=== PATIENT | male | born 1940 | race Caucasian/White ===

== ENCOUNTER 2016-09-19 08:49 | Emergency (ER) | payer OTHER ==
[2016-09-19 09:04] VITALS: BP 129/76; PULSE 64; TEMP 98.1; BMI 23.6
[2016-09-19] MEDS ORDERED: TETRACAINE 0.5% HCL 0.6ML DROPPER.BOTTLE OS ONE (09:10)
[2016-09-19] MEDS ORDERED: FLUORESCEIN NA 1 EA STRIP ONE (09:11)
[2016-09-19] MEDS ORDERED: FLUORESCEIN NA 1 EA STRIP OD ONE (09:11)
[2016-09-19] MEDS ORDERED: TETRACAINE 0.5% OPHTH SOLN 2 ML BOTTLE ONE (09:11)
[2016-09-19] MEDS ORDERED: ERYTHROMYCIN 0.5% OPHTHALMIC OINTMENT 3.5 GM TUBE OD ONE (09:20)
--- NOTE | 2016-09-19 09:21 | PDOC ---
History of Present Illness - General Chief Complaint: Eye Problem Stated Complaint: RT EYE PAIN Time Seen by Provider: 09/19/16 08:54 - History of Present Illness Initial Comments: 09/19/16 09:54 Chief complaint: Irritation and redness right eye History of present illness: As above for 2 days. No blurred or decreased vision. No known foreign body, although this is the sensation. Review of systems: No recent URI symptoms, sore throat, cough, chest pain, shortness of breath, abdominal pain, nausea, vomiting, diarrhea, visual or focal neurologic symptoms, unsteadiness of gait. Past medical history: Patient is a healthy male with no active medical problems , on no medications, no known high disease, wears glasses for correction. Social/family history reviewed and noncontributory Physical exam: Alert and oriented 3, well-developed well-nourished, no acute distress, cooperative Afebrile, vital signs normal Right eye: Conjunctiva is mildly injected without limbal flush. Anterior chambers clear. EOMs are full without diplopia. Visual acuity is intact as noted in nursing notes. Visual venegas are intact to confrontation. PERRLA 3 mm, fundi benign. Staining of the cornea with fluorescein reveals a corneal abrasion at approximately 6:00, at the inferior edge of the cornea, confined to the peripheral area. There is no foreign body visualized. There is no ulceration visualized. Left eye is normal. ENT clear Neck supple without nodes Chest clear CV regular without murmur rub or gallop Abdomen benign Skin clear, no rash Impression: Corneal abrasion Plan: Erythromycin ointment was applied and the eye was comfortably patched. The patient felt much better and was completely ambulatory and in no significant pain or other distress upon discharge. He was instructed to maintain the patch overnight, remove in the morning, and see his eye doctor Dr. Rodas to ensure that the abrasion has healed. Past History - Past Medical History Allergies/Adverse Reactions: Allergies Allergy/AdvReac Type Severity Reaction Status Date / Time No Known Allergies Allergy Verified 09/19/16 08:50 Home Medications: Ambulatory Orders NK [No Known Home Medication] 09/19/16 Other medical history: DENIES - Psycho/Social/Smoking Cessation Hx Anxiety: No Suicidal Ideation: No Smoking History: Never smoked Have you smoked in the past 12 months: No Information on smoking cessation initiated: No Hx Alcohol Use: No Drug/Substance Use Hx: No Substance Use Type: None *Physical Exam - Vital Signs Last Vital Signs Temp Pulse Resp BP Pulse Ox 98.1 F 64 20 129/76 98 09/19/16 08:50 09/19/16 08:50 09/19/16 08:50 09/19/16 08:50 09/19/16 08:50 *DC/Admit/Observation/Transfer Diagnosis at time of Disposition: Corneal abrasion Qualifiers: Encounter type: initial encounter Laterality: right Qualified Code(s): S05.01XA - Injury of conjunctiva and corneal abrasion without foreign body, right eye, initial encounter - Discharge Dispostion Disposition: HOME Condition at time of disposition: Improved Admit: No - Patient Instructions Printed Discharge Instructions: DI for Corneal Abrasion Additional Instructions: Keep eye patched until tomorrow morning. Remove patch at that time. If there is any residual irritation or discomfort of any kind, or any residual redness or blurred vision, see your eye doctor, Dr. Rodas, for further evaluation and treatment.
[2016-09-19] MEDS ORDERED: ERYTHROMYCIN 0.5% OPHTHALMIC OINTMENT 3.5 GM TUBE ONE (09:24)
== END 2016-09-19 09:36 | disposition home or self-care (01) ==
LOC: FER 08:49
DX: S05.01XA Injury of conjunctiva and corneal abrasion without foreign body, right eye, initial encounter (principal); X58.XXXA Exposure to other specified factors, initial encounter; Y93.89 Activity, other specified; Y92.9 Unspecified place or not applicable
CPT/HCPCS: 99281-25

== ENCOUNTER 2017-05-01 09:16 | Emergency (ER) | payer OTHER ==
[2017-05-01 09:23] VITALS: BP 148/83; PULSE 67; TEMP 97.7; BMI 23.3
--- NOTE | 2017-05-01 09:34 | PDOC ---
History of Present Illness - General Chief Complaint: Laceration Stated Complaint: LIP LAC Time Seen by Provider: 05/01/17 09:27 History Source: Patient Exam Limitations: No Limitations - History of Present Illness Initial Comments: 76 yo M presents with upper lip bleeding after cutting himself shaving this AM. He tried to stop it by applying local pressure but it continues to bleed. No other injuries. He does not take any blood thinners. Past History - Past Medical History Allergies/Adverse Reactions: Allergies Allergy/AdvReac Type Severity Reaction Status Date / Time No Known Allergies Allergy Verified 05/01/17 09:17 Home Medications: Ambulatory Orders NK [No Known Home Medication] 09/19/16 COPD: No DVT: No - Suicide/Smoking/Psychosocial Hx Smoking History: Never smoked Have you smoked in the past 12 months: No Hx Alcohol Use: Yes Drug/Substance Use Hx: No Substance Use Type: Alcohol Review of Systems - Review of Systems Able to Perform ROS?: Yes Comments:: GENERAL/CONSTITUTIONAL: No fever or chills. No weakness. HEAD, EYES, EARS, NOSE AND THROAT: No change in vision. No ear pain or discharge. No sore throat. SKIN: No rash. +Skin avulsion to upper lip. HEMATOLOGIC/LYMPHATIC: No anemia, easy bleeding, or history of blood clots. ALLERGIC/IMMUNOLOGIC: No hives or skin allergy. *Physical Exam - Vital Signs Last Vital Signs Temp Pulse Resp BP Pulse Ox 97.7 F 67 16 148/83 100 05/01/17 09:16 05/01/17 09:16 05/01/17 09:16 05/01/17 09:16 05/01/17 09:16 - Physical Exam Comments: GENERAL: Awake, alert, and fully oriented, in no acute distress HEAD: No signs of trauma EYES: PERRLA, EOMI, sclera anicteric, conjunctiva clear ENT: Auricles normal inspection, hearing grossly normal, nares patent, oropharynx clear without exudates. Moist mucosa SKIN: Warm, Dry, normal turgor, no rashes. +Small skin avulsion to upper lip at the vermilion border, center of lip. Oozing blood. Procedures - Laceration/Wound Repair Upper Lip Wound Length: to 2.5 cm Wound Explored: clean, no foreign body present Wound's Depth, Shape: superficial Wound Repaired With: Dermabond Progress: 05/01/17 09:35 Small area with skin avulsion did not stop bleeding with direct pressure, continued to ooze. A small amount of dermabond was applied locally, + hemostasis. Patient tolerated well. *DC/Admit/Observation/Transfer Diagnosis at time of Disposition: Skin avulsion - Discharge Dispostion Disposition: HOME Condition at time of disposition: Improved Admit: No - Referrals - Patient Instructions Printed Discharge Instructions: DI for Laceration Repair With Dermabond - Post Discharge Activity
== END 2017-05-01 09:43 | disposition home or self-care (01) ==
LOC: FER 09:16
PROC: 0CQ0XZZ Repair Upper Lip, External Approach (ICD-10-PCS; principal; 2017-05-01)
DX: S01.511A Laceration without foreign body of lip, initial encounter (principal); W26.8XXA Contact with other sharp object(s), not elsewhere classified, initial encounter; Y93.E8 Activity, other personal hygiene; Y92.89 Other specified places as the place of occurrence of the external cause
CPT/HCPCS: 12001; 99282-25

== ENCOUNTER 2018-01-13 12:20 | Observation (INO) | payer OTHER ==
--- NOTE | 2018-01-13 14:00 | PDOC ---
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 The patient woke up from bed and felt as if he was going to fall, so he lowered himself to the ground and his found him there. The called PCP (Ronni) who recommended patient come to the ED. The patient is not on anticoagulants. The patient denies changes in vision, headaches, head trauma, chest pain, shortness of breath, abdominal pain, nausea, vomiting, diaphoresis, diarrhea, constipation, dysuria, hematuria or fevers. The patient has no other complaints at bedside. PCP: Ronni Past History - Past Medical History Allergies/Adverse Reactions: Allergies Allergy/AdvReac Type Severity Reaction Status Date / Time No Known Allergies Allergy Verified 01/13/18 12:35 Home Medications: Ambulatory Orders NK [No Known Home Medication] 09/19/16 COPD: No DVT: No - Suicide/Smoking/Psychosocial Hx Smoking History: Never smoked Have you smoked in the past 12 months: No Hx Alcohol Use: Yes (ONCE A WEEK) Drug/Substance Use Hx: No Substance Use Type: None Review of Systems - Review of Systems Able to Perform ROS?: Yes Is the patient limited Nepali proficient: No Constitutional: No: Chills, Diaphoresis, Fever HEENTM: No: Blurred Vision, Tinnitus Respiratory: No: Cough, Orthopnea, Shortness of Breath Cardiac (ROS): No: Chest Pain, Palpitations, Syncope ABD/GI: No: Constipated, Diarrhea, Nausea, Vomiting : No: Burning, Dysuria, Hematuria Musculoskeletal: Yes: Muscle Weakness Neurological: No: Headache, Numbness, Paresthesia, Tingling *Physical Exam - Vital Signs Last Vital Signs Temp Pulse Resp BP Pulse Ox 97.9 F 66 16 109/68 98 01/13/18 12:33 01/13/18 12:33 01/13/18 12:33 01/13/18 12:33 01/13/18 12:33 - Physical Exam Comments: 01/13/18 14:02 GENERAL: Awake, alert, and fully oriented, in no acute distress HEAD: No signs of trauma, normocephalic, atraumatic EYES: EOMI, sclera anicteric, conjunctiva clear ENT: oropharynx clear without exudates. Moist mucosa NECK: Normal ROM, supple LUNGS: No distress, speaks full sentences, clear to auscultation bilaterally HEART: Regular rate and rhythm, normal S1 and S2, no murmurs, rubs or gallops, peripheral pulses normal and equal bilaterally. ABDOMEN: Soft, nontender, normoactive bowel sounds. No guarding, no rebound. No masses EXTREMITIES : Normal inspection, Normal range of motion, no edema. No clubbing or cyanosis. NEUROLOGICAL: Cranial nerves II through XII grossly intact. Normal speech, normal gait, no focal sensorimotor deficits, on heel to toe patient unable to keep balance SKIN: Warm, Dry, normal turgor, no rashes or lesions noted ED Treatment Course - LABORATORY CBC & Chemistry Diagram: 01/13/18 14:15 01/13/18 14:15 Medical Decision Making - Medical Decision Making 01/13/18 14:00 77 year old man with history of indolent lymphoma, tinnitus evaluated every 6months (last September 2017) who presents with 1 month of fatigue, unsteady gait, dizziness/lightheadedness, 1 week of decrease in appetite and near syncope this AM. DDX including but not limited to: electrolyte abnormality vs arrythmia/ACS vs UTI vs PNA W/U: - cbc, cmp, trop - EKG - CXR - ua, ucx TX: - 1L NS ED Course: Patient in no acute distress. 01/13/18 15:24 CBC, CMP: unremarkable UA: 3+ blood 01/13/18 15:33 Patient reassessed. Reports a convoluted story to this repairer typewriter and attending about episode of near syncope, including an inability to execute function, such as standing up. Concern over intracranial bleed, will order head CT to rule out bleed. 01/13/18 16:05 Medicine contacted will accept patient. *DC/Admit/Observation/Transfer Diagnosis at time of Disposition: Near syncope - Discharge Dispostion Condition at time of disposition: Stable Decision to Admit order: Yes - Referrals Referrals: Hugh Rudolph [Primary Care Provider] - - Patient Instructions - Post Discharge Activity
[2018-01-13 14:31] LABS: URINE APPEARANCE Clear; URINE BILIRUBIN Negative (NEGATIVE); URINE COLOR Amber; URINE GLUCOSE (UA) Negative (NEGATIVE); URINE KETONE Negative (NEGATIVE); URINE LEUK ESTERASE Negative (NEGATIVE); URINE NITRITE Negative (NEGATIVE); URINE PROTEIN Negative (NEGATIVE); URINE UROBILINOGEN 0.2 (0.2-1.0)
[2018-01-13 14:33] LABS: MEAN PLT VOLUME 8.3 fl (7.5-11.1)
[2018-01-13 14:37] LABS: BASO % 0.7 % (0-2.0); EOS % 0.5 % (0-4.5); HEMATOCRIT 44.5 % (35.4-49); HEMOGLOBIN 15.2 GM/dl (11.7-16.9); LYMPH % 26.3 % (8-40); MCH 32.8 pg (25.7-33.7); MCHC 34.1 g/dl (32.0-35.9); MEAN CELL VOLUME 96.3 fl (80-96); NEUT % 59.5 % (42.8-82.8); PLATELET COUNT 249 K/MM3 (134-434); RBC 4.63 M/mm3 (4.00-5.60); WHITE BLOOD COUNT 9.3 K/mm3 (4.0-10.8)
[2018-01-13 14:42] LABS: ALBUMIN 4.5 g/dl (3.5-5.0); ALK PHOS 66 U/L (32-92); ANION GAP 6 MMOL/L (8-16); BILIRUBIN,TOTAL 1.4 mg/dl (0.2-1.0); BLOOD UREA NITROGEN 21 mg/dl (7-18); CHLORIDE 102 mmol/L (98-107); CO2 28 mmol/L (22-28); CREATININE 1.1 mg/dl (0.6-1.3); GLUCOSE,RANDOM 95 mg/dl (74-106); SGOT/AST 35 U/L (10-42); SGPT/ALT 23 U/L (10-40); SODIUM 136 mmol/L (136-145); TOT PROT 6.8 g/dl (6.4-8.3)
[2018-01-13 14:46] LABS: URINE RBC 20-40 /hpf (0-3); URINE WBC 0-2 (0-2)
--- NOTE | 2018-01-13 16:05 | PDOC ---
Attending Attestation - Resident Resident Name: Madelyn Clemente - ED Attending Attestation I have performed the following: I have examined & evaluated the patient, The case was reviewed & discussed with the resident, I agree w/resident's findings & plan, Exceptions are as noted - HPI HPI: 01/13/18 16:01 77 yo male with tinnitus, and indolent lymphoma here with c/o near syncopal episode. pt states he was in the bathroom this am brushing his teeth, when he suddently felt woozy, like legs were going to give out. lied on floor. felt better, when he went to stand up was unabel to due to leg weakness. his found him on the floor, and helped him into the bed. happened around 7 am. no cp no sob. no palpitations. no mod factors. has had some similar events in the past earlier this week. can not provide further details as doesnnt remember exact events. state was admitted to [facility] several months ago for something similar. no f/c per he is under much stress, doesn eat or drink much. no palpitations no sob. no cp. - Physicial Exam PE: 01/13/18 16:04 awake alert lungs clear bilaterally heart rrr no mrg. abd soft nt nd. ext wwp no edema. no calf tenderness. skin warm and dry. speech clear. alert oriented x 3. - Medical Decision Making 01/13/18 16:05 differential: near synocpe dehydration anemia electrlyte abnoramlity dyshrtymia. plan labs cxr ekg trop will admit for near syncope. Heart Score/ECG Review #1 General ECG Interpretation: Sinus Rhythm, Normal Rate (61), Normal Intervals, No acute ischemic changes
[2018-01-13] MEDS ORDERED: SODIUM CHLORIDE 1,000 ML IV SCH (16:15)
[2018-01-13 18:55] VITALS: BMI 22.6
--- NOTE | 2018-01-13 20:49 | HP ---
Admitting History and Physical - Admission Chief Complaint: weakness and fall History of Present Illness: this is a 77 y/o male with hx of Monoclonal Gammopathy of Undetermined Significance (MGUS) presented to the hospital after the patient fell down while in the bathroom, according to the patient he felt that his legs are weak and was not able to hold himself, this is the 2nd episode that the patient falls, last was on the . patient denied any palpitaion, SOB, lightheadedness, chest pain, vertigo. stated he just couldnt keep his knees from buckling History Source: Patient Limitations to Obtaining History: No Limitations - Past Medical History Heme/Onc: Yes: Other (Monoclonal Gammopathy of Undetermined Significance) - Smoking History Smoking history: Never smoked Have you smoked in the past 12 months: No - Alcohol/Substance Use Hx Alcohol Use: Yes (ONCE A WEEK) Home Medications - Allergies Allergies/Adverse Reactions: Allergies Allergy/AdvReac Type Severity Reaction Status Date / Time No Known Allergies Allergy Verified 01/13/18 12:35 - Home Medications Home Medications: Ambulatory Orders NK [No Known Home Medication] 09/19/16 Review of Systems - Review of Systems Constitutional: reports: Unintentional Wgt. Loss Eyes: reports: No Symptoms HENT: reports: No Symptoms Neck: reports: No Symptoms Cardiovascular: reports: No Symptoms Respiratory: reports: No Symptoms Gastrointestinal: reports: No Symptoms Genitourinary: reports: No Symptoms Musculoskeletal: reports: Muscle Weakness Integumentary: reports: No Symptoms Neurological: reports: No Symptoms Endocrine: reports: No Symptoms Hematology/Lymphatic: reports: No Symptoms Psychiatric: reports: No Symptoms Physical Examination Vital Signs: Vital Signs Temperature 98.0 F 01/13/18 16:11 Pulse Rate 74 01/13/18 16:11 Respiratory Rate 17 01/13/18 20:09 Blood Pressure 134/63 01/13/18 16:11 O2 Sat by Pulse Oximetry (%) 98 01/13/18 20:09 Constitutional: Yes: Well Nourished, No Distress, Calm Eyes: Yes: Conjunctiva Clear, EOM Intact HENT: Yes: WNL, Atraumatic, Normocephalic Neck: Yes: WNL, Supple, Trachea Midline Cardiovascular: Yes: WNL, Regular Rate and Rhythm Respiratory: Yes: WNL, Regular, CTA Bilaterally Gastrointestinal: Yes: WNL, Normal Bowel Sounds ...Rectal Exam: Yes: Deferred Musculoskeletal: Yes: Muscle Weakness, Other (lower ext weakness) Extremities: Yes: WNL, Other (muscle wasting) Integumentary: Yes: WNL Neurological: Yes: WNL, Alert, Oriented Labs: CBC, BMP 01/13/18 14:15 01/13/18 14:15 Imaging - Results EKG: Image Reviewed Problem List - Problems (1) Macrocytic anemia Assessment/Plan: patient was noted to have elevated MCV with the history of fall and inability to walk properly will obtain vitamin B 12 level will obtain folic acid TSH level A1c Level Code(s): D53.9 - NUTRITIONAL ANEMIA, UNSPECIFIED (2) Fall Assessment/Plan: with the history of fall and inability to walk properly will obtain vitamin B 12 level will obtain folic acid TSH level A1c Level Code(s): W19.XXXA - UNSPECIFIED FALL, INITIAL ENCOUNTER (3) Monoclonal gammopathy of undetermined significance Assessment/Plan: stable patient is following with customer supply chain analyst Code(s): D47.2 - MONOCLONAL GAMMOPATHY (4) Hematuria Assessment/Plan: will follow with the urine analysis will start antibiotics if the patient has fever or WBC count Code(s): R31.9 - HEMATURIA, UNSPECIFIED
--- NOTE | 2018-01-14 12:22 | EKG ---
Test Reason : Blood Pressure : / mmHG Vent. Rate : 061 BPM Atrial Rate : 061 BPM P-R Int : 176 ms QRS Dur : 070 ms QT Int : 386 ms P-R-T Axes : 066 047 049 degrees QTc Int : 388 ms NORMAL SINUS RHYTHM NORMAL ECG NO PREVIOUS ECGS AVAILABLE Confirmed by MILANA POWELL MD ([id number]) on 01/14/2018 12:22:23 PM Referred By: ADELA Confirmed By:MILANA POWELL MD
[2018-01-14] MEDS ORDERED: valACYclovir HCL 1000 MG TABLET PO SCH (12:30)
--- NOTE | 2018-01-14 13:24 | CON.NEURO ---
Consult - Alcohol/Substance Use Hx Alcohol Use: Yes (ONCE A WEEK) - Smoking History Smoking history: Never smoked Have you smoked in the past 12 months: No Home Medications - Allergies Allergies/Adverse Reactions: Allergies Allergy/AdvReac Type Severity Reaction Status Date / Time No Known Allergies Allergy Verified 01/13/18 12:35 - Home Medications Home Medications: Ambulatory Orders NK [No Known Home Medication] 09/19/16 Physical Exam-Neuro Vital Signs: Vital Signs Temperature 98.8 F 01/14/18 12:00 Pulse Rate 70 01/14/18 12:00 Respiratory Rate 19 01/14/18 12:00 Blood Pressure 113/83 01/14/18 12:00 O2 Sat by Pulse Oximetry (%) 99 01/14/18 12:00 Labs: CBC, BMP 01/13/18 14:15 01/13/18 14:15 Assessment/Plan cc Episode of Presyncope HPI 77 year old male history of indolent Lymphoma . He has episode of when he feel dizzy and lightheadedness. He denies any passing out episode . He describes feeling as light headedness. Patient sit down on the floor. He feels his leg were giving away. He denies any dyaphagia, dysarthria, diplopia. He has ct head done and itw as normal. Patient also found to have shingles on his leg during this admission. Today morning he is feeling fine and no dizzy or any other focal neurological symptoms. 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 PMH as above NKDA FH,ROS, Social History reviewed in chart Neurological Examination Alert oriented x 3 EOMI, PUPILS REACTIVE , NO facial asymmetry, Motor 5/5 all ext, FTN is normal sensation is normal he is able to work without feeling dizzy CT head is normal Assessment / Episode of Presyncope, There is no evidence of seizure or stroke at this time. Patient seems to have recovered and is being monitored in tele. Neuro exam is non focal nad ct head is normal. There is no evidence of cognitive impairement . Plan: Concur with mri of brain and carotid ultrasound - b12,foalte tsh were reviewed and normal - continue cardiac monitoring, - once mri of brain is normal, he can be discharged from neuro point of view Thanking you so much Giuseppe Quijano MD
--- NOTE | 2018-01-14 17:11 | CON.ID ---
Consult Consult Specialty:: infectious disease Referred by:: hospitalist Reason for Consultation:: rash - History of Present Illness Chief Complaint: s/p fall at home. knees buckled History of Present Illness: 77 yo man admitted from home- history of MGUS followed by Dr Hugh Rudolph and Dr Will [facility] no fevers or chills no headaches per ER note he has been fatigued at home over the Sikhism holidays he had a [place] [employer] which he attributes to getting pushed-too many people alert and oriented has had weight loss which his PMD is aware of noted a rash on his right lower extremity 3 days ago rash is not painful has 2 daughters still working received one liter of IVF in ED - History Source History Provided By: Patient, Medical Record Limitations to Obtaining History: No Limitations - Past Medical History Heme/Onc: Yes: Other (MGUS) - Past Surgical History Additional Surgical History: cyst on back removed - Alcohol/Substance Use Hx Alcohol Use: Yes (ONCE A WEEK) - Smoking History Smoking history: Never smoked Have you smoked in the past 12 months: No - Social History Usual Living Arrangement: With Spouse ADL: Independent 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 Loss. denies: Chills, Fever Eyes: reports: No Symptoms HENT: reports: No Symptoms Neck: reports: No Symptoms Cardiovascular: reports: No Symptoms Respiratory: reports: No Symptoms Gastrointestinal: reports: No Symptoms Genitourinary: reports: No Symptoms Physical Exam Vital Signs: Vital Signs Temperature 98.2 F 01/14/18 14:00 Pulse Rate 64 01/14/18 14:00 Respiratory Rate 18 01/14/18 14:00 Blood Pressure 128/89 01/14/18 14:00 O2 Sat by Pulse Oximetry (%) 98 01/14/18 14:00 Constitutional: Yes: Well Nourished, No Distress, Calm Eyes: Yes: Conjunctiva Clear, EOM Intact HENT: Yes: Atraumatic, Normocephalic. No: Pharyngeal Erythema, Thrush Neck: Yes: Supple, Trachea Midline Cardiovascular: Yes: Regular Rate and Rhythm Respiratory: Yes: Regular, CTA Bilaterally Gastrointestinal: Yes: Normal Bowel Sounds, Soft Musculoskeletal: Yes: WNL Extremities: Yes: WNL Edema: No Integumentary: Yes: Rash (vesicular rash outer aspect of left leg extending to buttock (one lesion)) Psychiatric: Yes: Alert, Oriented Labs: CBC, BMP 01/13/18 14:15 01/13/18 14:15 Imaging - Results Chest X-ray: Report Reviewed Cat Scan: Report Reviewed MRI: Report Reviewed Problem List - Problems (1) Herpes zoster Code(s): B02.9 - ZOSTER WITHOUT COMPLICATIONS (2) Fall Code(s): W19.XXXA - UNSPECIFIED FALL, INITIAL ENCOUNTER Assessment/Plan can treat with po valtrex 1 gram po tid for 7 days he has normal renal function contact isolation unexplained weight loss d/w hospitalist
--- NOTE | 2018-01-14 17:47 | PN ---
Physical Exam: SUBJECTIVE: Patient seen and examined at bedside. OBJECTIVE: Vital Signs Period Temp Pulse Resp BP Sys/Escobar Pulse Ox Last 24 Hr 98.0 F-98.8 F 64-80 17-19 113-138/62-89 96-99 GENERAL: The patient is awake, alert, and fully oriented, in no acute distress. LUNGS: Breath sounds equal, clear to auscultation bilaterally, no wheezes, no crackles, no accessory muscle use. HEART: Regular rate and rhythm, S1, S2 ABDOMEN: Soft, nontender, nondistended, normoactive bowel sounds, no guarding, no rebound LEFT LOWER EXTREMITY: vesicular rash on the lateral aspect of left leg --upper lateral thigh (one lesion), and from the knee to the ankle (multiple lesions) NEUROLOGICAL: Cranial nerves II through XII grossly intact. Normal speech, steady gait Laboratory Results - last 24 hr 01/13/18 01/13/18 01/14/18 21:00 21:00 07:00 Hemoglobin A1c % Troponin I Cancelled < 0.03 0.02 Vitamin B12 677 Serum Folate 42 H TSH 2.37 01/14/18 07:00 Hemoglobin A1c % 5.2 Troponin I Vitamin B12 Serum Folate TSH Current Medications Generic Name Dose Route Start Last Admin Trade Name Freq PRN Reason Stop Dose Admin Valacyclovir HCl 1,000 mg 01/14/18 18:00 01/14/18 18:30 Valtrex - PO 1,000 mg Q8H ERVIN Administration ASSESSMENT/PLAN: 77 year-old male with a PMH significant for monoclonal gammopathy of unknown significance, chronic hematuria, and depression, placed on observation for a near syncopal episode. Found to have herpes zoster. Near syncope --got out of bed ~7a, went to the bathroom and had a bowel movement; stood up from toilet, walked 5 feet to sink and felt weak and "panicky"; walked out of the bathroom and lowered himself to the floor where is found him and helped him back to bed; did not lose consciousness, did not hit his head --troponins neg x 3; CXR unremarkable; ECG: sinus rhythm @ 61bpm, not suggestive of acute ischemic event; echo pending on Tuesday; cardiology will see tomorrow --01/14 MRI brain: moderate atrophy with no acute intracranial pathology; US carotids shows bilateral intimal thickening and soft plaque buildup, no hemodynamically significant stenosis; seen and evaluated by neuro, OK to discharge from neuro perspective --get orthostatic vitals --f/u echo Herpes zoster -- and daughter report 3 days ago patient came home complaining of severe leg pain (right/left??) and some gait instability; yesterday patient noticed a vesicular rash on lateral aspect of lower left leg --vesicular rash along the L5 dermatome --start valacyclovir PO TID x 7 days Monoclonal gammopathy of unknown significance --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 Hugh Rudolph (PCP) and Dr. Will (oncologist) both at [facility] --has been fatigued with weight loss recently --needs close outpatient followup Chronic hematuria Depression --goes to talk therapy occasionally; checked with office of Dr. Rudolph, was prescribed an anti-depressant a year ago, did not take FEN Fluids: PO intake adequate Electrolytes: replete as indicated Nutrition: low sodium DVT prophylaxis: sub heparin Dispo: continues to require observation. Full code. Visit type - Emergency Visit Emergency Visit: Yes ED Registration Date: 01/13/18 Care time: The patient presented to the Emergency Department on the above date and was hospitalized for further evaluation of their emergent condition. - New Patient This patient is new to me today: Yes Date on this admission: 01/14/18 - Critical Care Critical Care patient: No
[2018-01-14] MEDS: valACYclovir HCL 500 MG TABLET (FP) PO SCH (18:30)
[2018-01-14] MEDS ORDERED: valACYclovir HCL 500 MG TABLET (FP) PO SCH (22:00)
[2018-01-15] MEDS: valACYclovir HCL 500 MG TABLET (FP) PO SCH ×3 (01:03→17:23)
[2018-01-15] MEDS: HEPARIN NA (PORCINE) 5,000 UNITS/ML 1ML VIAL SQ SCH ×3 (06:48→21:49)
--- NOTE | 2018-01-15 09:52 | CON.CARD ---
Consult Consult Specialty:: Cardiology Referred by:: Juan Reason for Consultation:: near syncope - History of Present Illness Chief Complaint: fall History of Present Illness: 77M h/o MGUS p/w near syncope, fall. Fell in the bathroom, before falling felt legs were weak and unable to hold himself up. Afterwards continued to feel "woozy." Otherwise has felt well the last few days, but has been under a lot of stress at work. noted to have shingles. on valtrex. no chest pain, palps, edema, dyspnea, lightheadedness. Trop neg x 3. 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 History of Recent Travel: No Home Medications - Allergies Allergies/Adverse Reactions: Allergies Allergy/AdvReac Type Severity Reaction Status Date / Time No Known Allergies Allergy Verified 01/13/18 12:35 - Home Medications Home Medications: Ambulatory Orders NK [No Known Home Medication] 09/19/16 Family Disease History - Family Disease History Family History: Unremarkable Review of Systems - Review of Systems Constitutional: reports: Weakness Eyes: reports: No Symptoms HENT: reports: No Symptoms Neck: reports: No Symptoms Cardiovascular: reports: No Symptoms Respiratory: reports: No Symptoms Gastrointestinal: reports: No Symptoms Genitourinary: reports: No Symptoms Musculoskeletal: reports: No Symptoms Integumentary: reports: No Symptoms Neurological: reports: No Symptoms Endocrine: reports: No Symptoms Hematology/Lymphatic: reports: No Symptoms Psychiatric: reports: No Symptoms Vital Signs: Vital Signs Temperature 98.2 F 01/15/18 06:00 Pulse Rate 62 01/15/18 06:00 Respiratory Rate 19 01/15/18 06:00 Blood Pressure 125/66 01/15/18 06:00 O2 Sat by Pulse Oximetry (%) 96 01/15/18 07:00 Constitutional: Yes: No Distress, Calm Eyes: Yes: Conjunctiva Clear, EOM Intact HENT: Yes: Atraumatic, Normocephalic Neck: Yes: Supple, Trachea Midline Respiratory: Yes: Regular, CTA Bilaterally Gastrointestinal: Yes: Normal Bowel Sounds, Soft Cardiovascular: Yes: Regular Rate and Rhythm JVD: No Carotid Bruit: No PMI: Non-Displaced Heart Sounds: Yes: S1, S2 Musculoskeletal: No: Back Pain Extremities: No: Cold, Cyanosis Edema: No Peripheral Pulses WNL: Yes Peripheral Pulses: 2+ Left Doralis Pedis, 2+ Right Dorsalis Pedis Neurological: Yes: Alert, Oriented ...Motor Strength: WNL Psychiatric: Yes: Alert, Oriented - Other Data Labs, Other Data: CBC, BMP 01/13/18 14:15 01/13/18 14:15 Troponin, BNP 01/14/18 07:00 Troponin I 0.02 Troponin, BNP 01/14/18 07:00 Troponin I 0.02 Assessment/Plan MRI brain no acute pathology carotid dopplers: no hemodynamicaly significant stenosis EKG sinus, no ischemic changes, nl QTc tele: sinus, no events 77M h/o MGUS p/w near syncope, fall near syncope - possible vasovagal, orthostatic - less likely cardiac etiology - no events on tele, MRI and carotid dopplers unremarkable - echo pending, stable for discharge from cardiac perspective if benign finginds MGUS - stable, manage per primary
--- NOTE | 2018-01-15 11:38 | PN ---
Physical Exam: SUBJECTIVE: Patient seen and examined at bedside. present. Denies any type of pain. Left leg rash not itchy or bothersome. OBJECTIVE: Vital Signs Period Temp Pulse Resp BP Sys/Escobar Pulse Ox Last 24 Hr 98.2 F-98.9 F 59-64 17-19 108-128/53-89 96-98 GENERAL: The patient is awake, alert, and fully oriented, in no acute distress. LUNGS: Breath sounds equal, clear to auscultation bilaterally, no wheezes, no crackles, no accessory muscle use. HEART: Regular rate and rhythm, S1, S2 ABDOMEN: Soft, nontender, nondistended, normoactive bowel sounds, no guarding, no rebound LEFT LOWER EXTREMITY: vesicular rash on the lateral aspect of left leg --upper lateral thigh (one lesion), and from the knee to the ankle (multiple lesions) NEUROLOGICAL: Cranial nerves II through XII grossly intact. Normal speech, steady gait Laboratory Results - last 24 hr 01/14/18 07:00 Troponin I 0.02 Active Medications Generic Name Dose Route Start Last Admin Trade Name Freq PRN Reason Stop Dose Admin Heparin Sodium (Porcine) 5,000 unit 01/15/18 06:00 01/15/18 06:48 Heparin - SQ 5,000 unit TID ERVIN Administration Valacyclovir HCl 1,000 mg 01/14/18 18:00 01/15/18 01:03 EST Valtrex - PO 1,000 mg Q8H ERVIN Administration ASSESSMENT/PLAN 77 year-old male with a PMH significant for monoclonal gammopathy of unknown significance, chronic hematuria, and depression, placed on observation for a near syncopal episode. Found to have herpes zoster. Near syncope --got out of bed ~7a, went to the bathroom and had a bowel movement; stood up from toilet, walked 5 feet to sink and felt weak and "panicky"; walked out of the bathroom and lowered himself to the floor where is found him and helped him back to bed; did not lose consciousness, did not hit his head --troponins neg x 3; CXR unremarkable; ECG: sinus rhythm @ 61bpm, not suggestive of acute ischemic event; echo pending on Tuesday; cardiology following --01/14 MRI brain: moderate atrophy with no acute intracranial pathology; US carotids shows bilateral intimal thickening and soft plaque buildup, no hemodynamically significant stenosis; seen and evaluated by neuro, OK to discharge from neuro perspective --orthostatics --f/u echo Herpes zoster -- and daughter report 3 days ago patient came home complaining of severe leg pain (right/left??) and some gait instability; yesterday patient noticed a vesicular rash on lateral aspect of lower left leg --vesicular rash along the L5 dermatome --continue valacyclovir PO TID, needs 7 days of treatment Monoclonal gammopathy of unknown significance --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 Hugh Rudolph (PCP) and Dr. Will (oncologist) both at [facility] --has been fatigued with weight loss recently --needs close outpatient followup Chronic hematuria Depression --goes to talk therapy occasionally; checked with office of Dr. Rudolph, was prescribed an anti-depressant a year ago, did not take FEN Fluids: PO intake adequate Electrolytes: replete as indicated Nutrition: low sodium DVT prophylaxis: sub heparin Dispo: continues to require observation. If echo results OK can discharge home. Full code. Visit type - Emergency Visit Emergency Visit: Yes ED Registration Date: 01/13/18 Care time: The patient presented to the Emergency Department on the above date and was hospitalized for further evaluation of their emergent condition. - New Patient This patient is new to me today: No - Critical Care Critical Care patient: No
[2018-01-16] MEDS: valACYclovir HCL 500 MG TABLET (FP) PO SCH ×2 (02:19→10:11)
[2018-01-16] MEDS: HEPARIN NA (PORCINE) 5,000 UNITS/ML 1ML VIAL SQ SCH (06:43)
--- NOTE | 2018-01-16 08:45 | PN ---
Physical Exam: SUBJECTIVE: Patient seen and examined OBJECTIVE: Vital Signs Period Temp Pulse Resp BP Sys/Escobar Pulse Ox Last 24 Hr 97.8 F-98.5 F 67-68 17-18 127-138/- 98-99 GENERAL: The patient is awake, alert, and fully oriented, in no acute distress. HEAD: Normal with no signs of trauma. EYES: PERRL, extraocular movements intact, sclera anicteric, conjunctiva clear. No ptosis. ENT: Ears normal, nares patent, oropharynx clear without exudates, moist mucous membranes. NECK: Trachea midline, full range of motion, supple. LUNGS: Breath sounds equal, clear to auscultation bilaterally, no wheezes, no crackles, no accessory muscle use. HEART: Regular rate and rhythm, S1, S2 without murmur, rub or gallop. ABDOMEN: Soft, nontender, nondistended, normoactive bowel sounds, no guarding, no rebound, no hepatosplenomegaly, no masses. EXTREMITIES: 2+ pulses, warm, well-perfused, no edema. NEUROLOGICAL: Cranial nerves II through XII grossly intact. Normal speech, gait not observed. PSYCH: Normal mood, normal affect. SKIN: Warm, dry, normal turgor, no rashes or lesions noted Active Medications Generic Name Dose Route Start Last Admin Trade Name Freq PRN Reason Stop Dose Admin Heparin Sodium (Porcine) 5,000 unit 01/15/18 06:00 01/16/18 06:43 Heparin - SQ 5,000 unit TID ERVIN Administration Valacyclovir HCl 1,000 mg 01/14/18 18:00 01/16/18 02:19 Valtrex - PO 1,000 mg Q8H ERVIN Administration ASSESSMENT/PLAN:
--- NOTE | 2018-01-16 11:11 | DS ---
Physical Exam: SUBJECTIVE: Patient seen and examined, ambulatory at bedside steady gait noted patient denies any chest pain or shortness of breath OBJECTIVE: Patient is a 77 y/o male with hx of Monoclonal Gammopathy of Undetermined Significance (MGUS) presented to the hospital after the patient fell down while in the bathroom, according to the patient he felt that his legs are weak and was not able to hold himself, this is the 2nd episode that the patient falls, last was on the . patient denied any palpitaion, SOB, lightheadedness, chest pain, vertigo. stated he just couldnt keep his knees from buckling Vital Signs Period Temp Pulse Resp BP Sys/Escobar Pulse Ox Last 24 Hr 97.8 F-98.5 F 67-79 17-18 104-138/63-72 97-99 PHYSICAL EXAM GENERAL: The patient is awake, alert, and fully oriented, in no acute distress. HEAD: Normal with no signs of trauma. EYES: PERRL, extraocular movements intact, sclera anicteric, conjunctiva clear. ENT: Ears normal, nares patent, oropharynx clear without exudates, moist mucous membranes. NECK: Trachea midline, full range of motion, supple. LUNGS: Breath sounds equal, clear to auscultation bilaterally, no wheezes, no crackles, no accessory muscle use. HEART: Regular rate and rhythm, S1, S2 without murmur, rub or gallop. ABDOMEN: Soft, nontender, nondistended, normoactive bowel sounds, no guarding, no rebound, no hepatosplenomegaly, no masses. EXTREMITIES: 2+ pulses, warm, well-perfused, no edema. NEUROLOGICAL: Cranial nerves II through XII grossly intact. Normal speech, steady gait noted. PSYCH: Normal mood, normal affect. SKIN: Warm, dry, normal turgor, vesicular rash (dried vesicles) to left lateral extremity in linear pattern. LABS CBC WBC 9.3 K/mm3 (4.0-10.8) 01/13/18 14:15 RBC 4.63 M/mm3 (4.00-5.60) 01/13/18 14:15 Hgb 15.2 GM/dl (11.7-16.9) 01/13/18 14:15 Hct 44.5 % (35.4-49) 01/13/18 14:15 MCV 96.3 fl (80-96) H 01/13/18 14:15 MCH 32.8 pg (25.7-33.7) 01/13/18 14:15 MCHC 34.1 g/dl (32.0-35.9) 01/13/18 14:15 RDW 12.0 % (11.9-15.9) 01/13/18 14:15 Plt Count 249 K/MM3 (134-434) 01/13/18 14:15 MPV 8.3 fl (7.5-11.1) 01/13/18 14:15 Absolute Neuts (auto) 5.6 K/mm3 01/13/18 14:15 Neutrophils % 59.5 % (42.8-82.8) 01/13/18 14:15 Lymphocytes % 26.3 % (8-40) 01/13/18 14:15 Monocytes % 13.0 % (3.8-10.2) H 01/13/18 14:15 Eosinophils % 0.5 % (0-4.5) 01/13/18 14:15 Basophils % 0.7 % (0-2.0) 01/13/18 14:15 CMP Sodium 136 mmol/L (136-145) 01/13/18 14:15 Potassium 4.0 mmol/L (3.5-5.1) 01/13/18 14:15 Chloride 102 mmol/L (98-107) 01/13/18 14:15 Carbon Dioxide 28 mmol/L (22-28) 01/13/18 14:15 Anion Gap 6 MMOL/L (8-16) L 01/13/18 14:15 BUN 21 mg/dl (7-18) H 01/13/18 14:15 Creatinine 1.1 mg/dl (0.6-1.3) 01/13/18 14:15 Creat Clearance w eGFR > 60 (>60) 01/13/18 14:15 Random Glucose 95 mg/dl (74-106) 01/13/18 14:15 Hemoglobin A1c % 5.2 % (4.2-6.3) 01/14/18 07:00 Calcium 9.0 mg/dl (8.4-10.2) 01/13/18 14:15 Magnesium 2.2 mg/dL (1.8-2.4) 01/13/18 14:15 Total Bilirubin 1.4 mg/dl (0.2-1.0) H 01/13/18 14:15 AST 35 U/L (10-42) 01/13/18 14:15 ALT 23 U/L (10-40) 01/13/18 14:15 Alkaline Phosphatase 66 U/L (32-92) 01/13/18 14:15 Troponin I 0.02 ng/ml (0.00-0.05) 01/14/18 07:00 Total Protein 6.8 g/dl (6.4-8.3) 01/13/18 14:15 Albumin 4.5 g/dl (3.5-5.0) 01/13/18 14:15 Vitamin B12 677 pg/ml (193-986) 01/14/18 07:00 Serum Folate 42 ng/mL (3.1-17.5) H 01/14/18 07:00 TSH 2.37 uIU/ml (0.358-3.74) 01/14/18 07:00 Microbiology 01/13/18 17:00 Blood - Peripheral Venous Blood Culture - Preliminary NO GROWTH OBTAINED AFTER 48 HOURS, INCUBATION TO CONTINUE FOR 3 DAYS. 01/13/18 17:30 Blood - Peripheral Venous Blood Culture - Preliminary NO GROWTH OBTAINED AFTER 48 HOURS, INCUBATION TO CONTINUE FOR 3 DAYS. 01/13/18 14:25 Urine - Urine Clean Catch Urine Culture - Final NO GROWTH OBTAINED IMAGING mri of brain 01/14: no acute pathology, chronic microvascular changes carotid doppler: no evidence of hemodynamic significant stenosis cxr unremarkable ECG: sinus rhythm @ 61bpm, not suggestive of acute ischemic event HOSPITAL COURSE: 1) Near syncope - secondary to orthostatic hypotension, patient reports he ambulated independently from bed went to the bathroom and had a bowel movement; stood up from toilet, walked 5 feet to sink and felt weak and "panicky"; walked out of the bathroom and lowered himself to the floor where is found him and helped him back to bed; did not lose consciousness, did not hit his head - troponins neg x 3; - cardiology consulted and followed - neurology consulted and followed 2) Herpes zoster - continue valacyclovir PO TID, needs 7 days of treatment 3) Monoclonal gammopathy of unknown significance - Family reports this as MGUS, non-Hodgkins lymphoma, and indolent lymphoma interchangeably, diagnosed 3-5 years ago and treated with prednisone - followed by Drs. Hugh Rudolph (PCP) and Dr. Will (oncologist) both at [facility] -needs close outpatient followup 4) Depression -goes to talk therapy occasionally; checked with office of Dr. Rudolph, was prescribed an anti-depressant a year ago,does not take PLAN: - discharge home, continue valacylovir po tid for 7 days - strict follow up with pcp within 1 week Date of Admission:01/13/18 Date of Discharge: 01/16/18 Minutes to complete discharge: 45 Discharge Summary Reason For Visit: PRE-SYNCOPE Current Active Problems Fall (Acute) Hematuria (Acute) Herpes zoster (Acute) Macrocytic anemia (Acute) Monoclonal gammopathy of undetermined significance (Acute) Near syncope (Acute) Condition: Stable - Instructions Referrals: Hugh Rudolph [Primary Care Provider] - - Home Medications Comprehensive Discharge Medication List: Ambulatory Orders NK [No Known Home Medication] 09/19/16
--- NOTE | 2018-01-16 11:35 | PN ---
Progress Note, Physician History of Present Illness: No c/o leg pain or pruritis at site of rash No fever/ chills Tolerating valtrex - Current Medication List Current Medications: Active Medications Heparin Sodium (Porcine) (Heparin -) 5,000 unit SQ TID [facility] Last Admin: 01/16/18 06:43 Dose: 5,000 unit Valacyclovir HCl (Valtrex -) 1,000 mg PO Q8H [facility] Last Admin: 01/16/18 10:11 Dose: 1,000 mg - Objective Vital Signs: Vital Signs Temperature 97.8 F 01/16/18 04:30 Pulse Rate 74 01/16/18 08:00 Respiratory Rate 17 01/16/18 04:30 Blood Pressure 122/72 01/16/18 08:00 O2 Sat by Pulse Oximetry (%) 97 01/16/18 10:00 Constitutional: Yes: No Distress Eyes: Yes: Conjunctiva Clear Cardiovascular: Yes: Regular Rate and Rhythm, S1, S2 Respiratory: Yes: CTA Bilaterally Gastrointestinal: Yes: Normal Bowel Sounds, Soft. No: Tenderness Extremities: Yes: Other (+ vesicular rash, distal leg) Labs: CBC, BMP 01/13/18 14:15 01/13/18 14:15 Assessment/Plan VZV L5 dermatome MGUS Continue po valtrex Complete 7d course
[2018-01-16 13:58] VITALS: BP 124/66; PULSE 73; TEMP 98.5
--- NOTE | 2018-01-16 15:52 | ECHO ---
Name: NIR RILEY Exam:Adult Echocardiogram Study Date: 01/16/2018 02:59 PM Age: 77 yrs Reason For Study: SYNCOPE Height: 72 in Weight: 168 lb BSA: 2.0 m2 MMode/2D Measurements & Calculations IVSd: 0.95 cm Ao root diam: 3.1 cm LVIDd: 4.0 cm LA dimension: 3.1 cm LVIDs: 2.7 cm LVPWd: 0.88 cm EDV(Teich): 71.6 ml ESV(Teich): 26.4 ml Doppler Measurements & Calculations MV E max mica: 89.4 cm/sec MV A max mica: 75.0 cm/sec MV dec slope: 367.9 cm/sec2 MV E/A: 1.2 TR max mica: 184.0 cm/sec TR max P.7 mmHg Procedure A complete two-dimensional transthoracic echocardiogram was performed (2D, M-mode, Doppler and color flow Doppler). Left Ventricle The left ventricle is normal in size. Left ventricular systolic function is normal. Ejection Fraction = 60- 65%. TDI reveals mildly impaired relaxation with elevated filling pressure (E/E' 16). No regional wal l motion abnormalities noted. Right Ventricle The right ventricle is normal size. The right ventricular systolic function is normal. Atria The left atrial size is normal. Right atrial size is normal. Mitral Valve There is mild mitral annular calcification. There is mild mitral regurgitation. Tricuspid Valve The tricuspid valve is normal in structure and function. No tricuspid regurgitation. Aortic Valve There is mild aortic sclerosis.;. No aortic regurgitation is present. Pulmonic Valve The pulmonic valve is not well visualized. Great Vessels The aortic root is normal size. Pericardium/Pleura There is no pericardial effusion. Interpretation Summary The left ventricle is normal in size. Left ventricular systolic function is normal. No regional wall motion abnormalities noted. Ejection Fraction = 60-65%. TDI reveals mildly impaired relaxation with elevated filling pressure (E/E' 16) The right ventricular systolic function is normal. The left atrial size is normal. Right atrial size is normal. There is mild mitral annular calcification. There is mild mitral regurgitation. There is mild aortic sclerosis. There is no pericardial effusion. Previous study is not available for comparison Osmany Rouse MD 01/16/2018 03:51 PM
== END 2018-01-16 16:35 | disposition home or self-care (01) ==
LOC: FER 12:20 → FM/S 16:11
PROVIDERS: ADMIT Internal Medicine; ATTEND Nurse Practitioner Family
PROC: 3E0337Z Introduction of Electrolytic and Water Balance Substance into Peripheral Vein, Percutaneous Approach (ICD-10-PCS; principal; 2018-01-13)
PROC: 3E013GC Introduction of Other Therapeutic Substance into Subcutaneous Tissue, Percutaneous Approach (ICD-10-PCS; 2018-01-13)
DX: R55 Syncope and collapse (principal); B02.9 Zoster without complications; D47.2 Monoclonal gammopathy; C82.80 Other types of follicular lymphoma, unspecified site; H93.19 Tinnitus, unspecified ear; D53.9 Nutritional anemia, unspecified; R31.9 Hematuria, unspecified; R31.21 Asymptomatic microscopic hematuria; I65.29 Occlusion and stenosis of unspecified carotid artery; F32.9 Major depressive disorder, single episode, unspecified; W18.39XA Other fall on same level, initial encounter; Z91.81 History of falling; Y93.89 Activity, other specified; Y92.002 Bathroom of unspecified non-institutional (private) residence as the place of occurrence of the external cause
CPT/HCPCS: 36415; 70450-TC; 70551-TC; 71045-TC-FY; 80053; 81003; 81015; 82607; 82746; 83036; 83735; 84443; 84484; 85025; 87040; 87086; 93005; 93306-TC; 93880-TC; 96360; 96361; 96372; 97116-GP; 97161-GP; 99284-25; G0378; J1644; J7030

== ENCOUNTER 2021-01-27 14:24 | Emergency (ER) | payer OTHER ==
[2021-01-27 14:53] VITALS: BP 130/55; PULSE 66; TEMP 98.2; BMI 23.0
[2021-01-27 16:21] LABS: BASO % 4.3 % (0-2.0); HEMATOCRIT 36.6 % (35.4-49); HEMOGLOBIN 12.3 GM/dl (11.7-16.9); LYMPH % 15.5 % (8-40); MCH 32.2 pg (25.7-33.7); MCHC 33.5 g/dl (32.0-35.9); MEAN PLT VOLUME 8.4 fl (7.5-11.1); MONO % 10.4 % (3.8-10.2); NEUT % 68.8 % (42.8-82.8); PLATELET COUNT 203 10^3/uL (134-434); RBC 3.82 M/mm3 (4.00-5.60); RDW 12.1 % (11.9-15.9); WHITE BLOOD COUNT 8.9 K/mm3 (4.0-10.8)
[2021-01-27 16:48] LABS: ALBUMIN 3.8 g/dl (3.4-5.0); BILIRUBIN,TOTAL 0.6 mg/dl (0.2-1); CALCIUM 9.2 mg/dl (8.5-10); CREATININE 1.4 mg/dl (0.55-1.3)
== END 2021-01-27 17:32 | disposition home or self-care (01) ==
LOC: FER 14:24
DX: E86.0 Dehydration (principal)
CPT/HCPCS: 36415; 70450-TC; 71045-TC-FY; 80053; 81003; 81015; 85025; 87086; 99284-25

== ENCOUNTER 2021-06-25 10:04 | Emergency (ER) | payer OTHER ==
[2021-06-25 11:13] LABS: INR 1.07 (0.83-1.09); PROTHROMBIN TIME (PATIENT) 12.3 SEC (9.7-13.0)
[2021-06-25 11:14] LABS: HEMATOCRIT 37.5 % (35.4-49); HEMOGLOBIN 13.2 G/dL (11.7-16.9); MCH 33.3 pg (25.7-33.7); MCHC 35.1 g/dl (32.0-35.9); MEAN PLT VOLUME 8.7 fl (7.5-11.1); RBC 3.95 10^6/uL (4.00-5.60); RDW 13.9 % (11.9-15.9)
[2021-06-25 11:16] LABS: ACTIVATED PTT 27.5 SECONDS (25.2-36.5)
[2021-06-25 11:21] LABS: BILIRUBIN,TOTAL 1.2 mg/dl (0.2-1); CALCIUM 9.6 mg/dl (8.5-10); CREATININE 1.2 mg/dl (0.55-1.3)
[2021-06-25] MEDS ORDERED: LACTATED RINGERS SOLUTION 1000 ML INFUS.BAG IV ONE (11:22)
[2021-06-25 14:50] VITALS: BP 130/60; PULSE 53; TEMP 99
== END 2021-06-25 14:51 | disposition home or self-care (01) ==
LOC: FER 10:04
DX: R10.9 Unspecified abdominal pain (principal)
CPT/HCPCS: 36415; 71046-TC-FY; 74177-TC; 80053; 81003; 81015; 83690; 84484; 85025; 85610; 85730; 87040; 87086; 99285-25

== ENCOUNTER 2022-01-11 10:10 | Observation (INO) | payer OTHER ==
[2022-01-11] MEDS ORDERED: SODIUM CHLORIDE 1,000 ML IV ONE (11:42)
[2022-01-11 12:27] LABS: HEMATOCRIT 39.1 % (35.4-49); HEMOGLOBIN 13.8 G/dL (11.7-16.9); MCH 34.1 pg (25.7-33.7); MCHC 35.2 g/dl (32.0-35.9); MEAN CELL VOLUME 96.9 fl (80-96); MEAN PLT VOLUME 8.8 fl (7.5-11.1); PLATELET COUNT 241.6 10^3/uL (134-434); RBC 4.03 10^6/uL (4.00-5.60); RDW 13.6 % (11.9-15.9); WHITE BLOOD COUNT 13.6 10^3/uL (4.0-10.8)
[2022-01-11 12:32] LABS: ALBUMIN 4.1 g/dl (3.4-5.0); BILIRUBIN,TOTAL 1.5 mg/dl (0.2-1); CALCIUM 9.7 mg/dl (8.5-10); CREATININE 1.3 mg/dl (0.55-1.3); TOT PROT 6.3 g/dl (6.4-8.2)
[2022-01-11 14:19] LABS: PLATELET ESTIMATE ADEQUATE
[2022-01-11] MEDS ORDERED: ASPIRIN 81 MG CHEWABLE TABLETS PO ONE (15:09)
[2022-01-11] MEDS ORDERED: ASPIRIN 81 MG CHEWABLE TABLETS ONE (15:15)
[2022-01-11 17:12] VITALS: BMI 21.2
[2022-01-11] MEDS: lamoTRIgine 25 MG TABLET PO SCH (23:10)
[2022-01-12 08:33] LABS: ALBUMIN 3.3 g/dl (3.4-5.0); BILIRUBIN,TOTAL 1.2 mg/dl (0.2-1); CALCIUM 8.6 mg/dl (8.5-10); CREATININE 1.1 mg/dl (0.55-1.3); MAGNESIUM 1.8 mg/dL (1.8-2.4); PHOSPHOROUS 3.4 mg/dl (2.5-4.9); TOT PROT 5.3 g/dl (6.4-8.2)
[2022-01-12] MEDS: DONEPEZIL HCL 10 MG TABLET (FP) PO SCH (10:14)
[2022-01-12] MEDS: MEMANTINE HCL 10 MG TABLET (FP) PO SCH ×2 (10:14→22:13)
[2022-01-12] MEDS: lamoTRIgine 25 MG TABLET PO SCH ×2 (10:14→22:13)
[2022-01-12] MEDS: ESCITALOPRAM OXALATE 10 MG TABLET PO SCH (10:14)
[2022-01-12] MEDS: ENOXAPARIN NA (PORCINE) 40 MG/0.4 ML DISP.SYRIN SQ SCH (10:15)
[2022-01-12] MEDS ORDERED: ROSUVASTATIN CA 20 MG TABLET PO SCH ×2 (10:30)
[2022-01-12] MEDS ORDERED: ROSUVASTATIN CA 20 MG TABLET PO ONE (10:30)
[2022-01-12 10:46] LABS: BASO % 0.2 % (0-2.0); EOS % 0.9 % (0-4.5); HEMATOCRIT 34.6 % (35.4-49); LYMPH % 25.5 % (8-40); MCH 33.5 pg (25.7-33.7); MCHC 34.6 g/dl (32.0-35.9); MEAN PLT VOLUME 9.1 fl (7.5-11.1); MONO % 8.5 % (3.8-10.2); NEUT % 64.9 % (42.8-82.8); PLATELET COUNT 189 10^3/uL (134-434); RBC 3.57 M/mm3 (4.00-5.60); RDW 12.8 % (11.9-15.9); WHITE BLOOD COUNT 7.5 K/mm3 (4.0-10.0)
[2022-01-12] MEDS: ASPIRIN 81 MG CHEWABLE TABLETS PO SCH (13:54)
[2022-01-12 21:57] LABS: N-TERMINAL BNP 3979.6 pg/ml (5-450)
[2022-01-13] MEDS: MEMANTINE HCL 10 MG TABLET (FP) PO SCH (10:16)
[2022-01-13] MEDS: ENOXAPARIN NA (PORCINE) 40 MG/0.4 ML DISP.SYRIN SQ SCH (10:16)
[2022-01-13] MEDS: lamoTRIgine 25 MG TABLET PO SCH (10:17)
[2022-01-13] MEDS: DONEPEZIL HCL 10 MG TABLET (FP) PO SCH (10:17)
[2022-01-13] MEDS: ESCITALOPRAM OXALATE 10 MG TABLET PO SCH (10:17)
[2022-01-13] MEDS: ASPIRIN 81 MG CHEWABLE TABLETS PO SCH (10:17)
[2022-01-13 14:21] VITALS: BP 135/55; PULSE 58; RESP 16; TEMP 97.9
[2022-01-13] MEDS ORDERED: ROSUVASTATIN CA 20 MG TABLET PO SCH (22:00)
== END 2022-01-13 18:08 | disposition home or self-care (01) ==
LOC: FER 10:10 → SUPCPDRO 10:10 → FM/S 14:31
PROVIDERS: ADMIT Internal Medicine
PROC: 3E023GC Introduction of Other Therapeutic Substance into Muscle, Percutaneous Approach (ICD-10-PCS; principal; 2022-01-11)
PROC: 3E0337Z Introduction of Electrolytic and Water Balance Substance into Peripheral Vein, Percutaneous Approach (ICD-10-PCS; 2022-01-11)
DX: G93.41 Metabolic encephalopathy (principal); F02.80 Dementia in other diseases classified elsewhere, unspecified severity, without behavioral disturbance, psychotic disturbance, mood disturbance, and anxiety; I10 Essential (primary) hypertension; E78.5 Hyperlipidemia, unspecified; F32.A Depression, unspecified; G30.9 Alzheimer's disease, unspecified; Z85.72 Personal history of non-Hodgkin lymphomas; R77.8 Other specified abnormalities of plasma proteins
CPT/HCPCS: 36415; 70450-TC; 71045-TC-FY; 80053; 80061; 82550; 82553; 83615; 83735; 83880; 84100; 84439; 84443; 84484; 85025; 85027; 86780; 93005; 93306-TC; 96360; 96372; 97116-GP; 97162-GP; 99285-25; C9803-CS; G0378; U0003; U0005

== ENCOUNTER 2022-02-11 15:31 | Inpatient (IN) | payer OTHER ==
[2022-02-11 16:56] LABS: HEMATOCRIT 37.2 % (35.4-49); HEMOGLOBIN 12.8 G/dL (11.7-16.9); MCH 33.8 pg (25.7-33.7); MCHC 34.5 g/dl (32.0-35.9); MEAN CELL VOLUME 98.2 fl (80-96); MEAN PLT VOLUME 8.8 fl (7.5-11.1); PLATELET COUNT 198.8 10^3/uL (134-434); RBC 3.79 10^6/uL (4.00-5.60); RDW 14.1 % (11.9-15.9); WHITE BLOOD COUNT 9.6 10^3/uL (4.0-10.8)
[2022-02-11 16:58] LABS: INR 1.18 (0.83-1.09); PROTHROMBIN TIME (PATIENT) 13.6 SEC (9.7-13.0)
[2022-02-11 17:00] LABS: ACTIVATED PTT 25.5 SECONDS (25.2-36.5)
[2022-02-11 17:04] LABS: ALBUMIN 3.8 g/dl (3.4-5.0); BILIRUBIN,TOTAL 1.5 mg/dl (0.2-1); CALCIUM 8.8 mg/dl (8.5-10); CREATININE 1.3 mg/dl (0.55-1.3); TOT PROT 5.8 g/dl (6.4-8.2)
[2022-02-11] MEDS ORDERED: HALOPERIDOL LACTATE 5 MG/ML IM ONE ×2 (17:35→17:52)
[2022-02-11] MEDS ORDERED: LORazepam 2 MG/ML SDV VIAL IVPUSH ONE (19:28)
[2022-02-11 22:38] VITALS: BMI 21.7
[2022-02-11] MEDS: SODIUM CHLORIDE 1,000 ML IV SCH (23:55)
[2022-02-12] MEDS ORDERED: ACETAMINOPHEN 1000 MG/100 ML BAG IVPB PRN (00:03)
[2022-02-12 01:55] LABS: EPI CELLS 24 /uL (0-25.1); HYALINE CASTS 1 /uL (0-3.1); URINE APPEARANCE CLEAR; URINE BACTERIA 14 /uL (0-1359); URINE BILIRUBIN NEGATIVE (NEGATIVE); URINE COLOR YELLOW; URINE GLUCOSE (UA) NEGATIVE (NEGATIVE); URINE KETONE TRACE (NEGATIVE); URINE LEUK ESTERASE NEGATIVE (NEGATIVE); URINE NITRITE NEGATIVE (NEGATIVE); URINE PROTEIN TRACE (NEGATIVE); URINE RBC 207 /uL (0-23.9); URINE UROBILINOGEN 0.2 mg/dL (0.2-1.0); URINE WBC 15 /uL (0-25.8)
[2022-02-12 08:40] LABS: CALCIUM 8.6 mg/dl (8.5-10); CREATININE 1.1 mg/dl (0.55-1.3); MAGNESIUM 1.8 mg/dL (1.8-2.4); PHOSPHOROUS 3.8 mg/dl (2.5-4.9)
[2022-02-12 08:42] LABS: HEMATOCRIT 39.1 % (35.4-49); HEMOGLOBIN 13.2 G/dL (11.7-16.9); MCHC 33.7 g/dl (32.0-35.9); MEAN CELL VOLUME 98.1 fl (80-96); MEAN PLT VOLUME 8.9 fl (7.5-11.1); PLATELET COUNT 189.5 10^3/uL (134-434); RBC 3.99 10^6/uL (4.00-5.60); RDW 14.6 % (11.9-15.9); WHITE BLOOD COUNT 11.4 10^3/uL (4.0-10.8)
[2022-02-12] MEDS: MEMANTINE HCL 10 MG TABLET (FP) PO SCH ×2 (10:14→21:33)
[2022-02-12] MEDS: HEPARIN NA (PORCINE) 5,000 UNITS/ML 1ML VIAL SQ SCH ×2 (10:15→21:34)
[2022-02-12] MEDS: ESCITALOPRAM OXALATE 10 MG TABLET PO SCH (10:15)
[2022-02-12] MEDS ORDERED: LORazepam 2 MG/ML SDV VIAL IVPUSH PRN (10:46)
[2022-02-12] MEDS: CEFTRIAXONE 1 GM in DEXTROSE 5%-WATER - 50 ML IVPB SCH (11:33)
[2022-02-12] MEDS ORDERED: HEPARIN NA (PORCINE) 5,000 UNITS/ML 1ML VIAL SQ SCH (14:00)
[2022-02-13] MEDS: SODIUM CHLORIDE 1,000 ML IV SCH ×2 (01:02→12:45)
[2022-02-13 09:50] LABS: ALBUMIN 3.5 g/dl (3.4-5.0); CALCIUM 8.8 mg/dl (8.5-10); CREATININE 1.1 mg/dl (0.55-1.3); TOT PROT 5.7 g/dl (6.4-8.2)
[2022-02-13 10:53] LABS: BASO % 0.2 % (0-2.0); EOS % 0.6 % (0-4.5); HEMATOCRIT 36.5 % (35.4-49); HEMOGLOBIN 12.2 GM/dL (11.7-16.9); MCH 32.7 pg (25.7-33.7); MCHC 33.4 g/dl (32.0-35.9); MEAN CELL VOLUME 97.9 fl (80-96); MEAN PLT VOLUME 9.5 fl (7.5-11.1); NEUT % 75.2 % (42.8-82.8); PLATELET COUNT 195 10^3/uL (134-434); RBC 3.73 M/mm3 (4.00-5.60); RDW 13.5 % (11.9-15.9); WHITE BLOOD COUNT 9.4 K/mm3 (4.0-10.0)
[2022-02-13] MEDS: ESCITALOPRAM OXALATE 10 MG TABLET PO SCH (10:56)
[2022-02-13] MEDS: HEPARIN NA (PORCINE) 5,000 UNITS/ML 1ML VIAL SQ SCH ×2 (10:56→21:43)
[2022-02-13] MEDS: MEMANTINE HCL 10 MG TABLET (FP) PO SCH ×2 (10:57→21:43)
[2022-02-13] MEDS: CEFTRIAXONE 1 GM in DEXTROSE 5%-WATER - 50 ML IVPB SCH (10:57)
[2022-02-13] MEDS: lamoTRIgine 25 MG TABLET PO SCH ×2 (12:45→21:42)
[2022-02-13] MEDS ORDERED: ACETAMINOPHEN 325 MG TABLET (FP) PO PRN (23:54)
[2022-02-14] MEDS: MEMANTINE HCL 10 MG TABLET (FP) PO SCH ×2 (09:53→21:24)
[2022-02-14] MEDS: ESCITALOPRAM OXALATE 10 MG TABLET PO SCH (09:53)
[2022-02-14] MEDS: HEPARIN NA (PORCINE) 5,000 UNITS/ML 1ML VIAL SQ SCH ×2 (09:53→21:24)
[2022-02-14] MEDS: lamoTRIgine 25 MG TABLET PO SCH ×2 (09:53→21:23)
[2022-02-14] MEDS: SODIUM CHLORIDE 1,000 ML IV SCH (11:06)
[2022-02-14] MEDS ORDERED: LORazepam 2 MG/ML SDV VIAL IVPUSH ONE (18:01)
[2022-02-15 08:48] LABS: ALBUMIN 3.1 g/dl (3.4-5.0); BILIRUBIN,TOTAL 0.9 mg/dl (0.2-1); CALCIUM 8.4 mg/dl (8.5-10); CREATININE 0.8 mg/dl (0.55-1.3); TOT PROT 5.1 g/dl (6.4-8.2)
[2022-02-15] MEDS: ESCITALOPRAM OXALATE 10 MG TABLET PO SCH (09:26)
[2022-02-15] MEDS: HEPARIN NA (PORCINE) 5,000 UNITS/ML 1ML VIAL SQ SCH ×2 (09:26→21:15)
[2022-02-15] MEDS: lamoTRIgine 25 MG TABLET PO SCH ×2 (09:26→21:15)
[2022-02-15] MEDS: MEMANTINE HCL 10 MG TABLET (FP) PO SCH ×2 (09:26→21:15)
[2022-02-15 11:09] LABS: BASO % 0.4 % (0-2.0); EOS % 1.9 % (0-4.5); HEMATOCRIT 36.3 % (35.4-49); HEMOGLOBIN 12.4 GM/dL (11.7-16.9); LYMPH % 18.9 % (8-40); MCHC 34.3 g/dl (32.0-35.9); MEAN CELL VOLUME 96.2 fl (80-96); MEAN PLT VOLUME 9.5 fl (7.5-11.1); MONO % 9.8 % (3.8-10.2); PLATELET COUNT 224 10^3/uL (134-434); RBC 3.77 M/mm3 (4.00-5.60); RDW 13.1 % (11.9-15.9); WHITE BLOOD COUNT 6.8 K/mm3 (4.0-10.0)
[2022-02-15] MEDS ORDERED: LORazepam 2 MG/ML SDV VIAL IVPUSH ONE (16:30)
[2022-02-15] MEDS: SODIUM CHLORIDE 1,000 ML IV SCH (16:31)
[2022-02-16] MEDS: MEMANTINE HCL 10 MG TABLET (FP) PO SCH ×2 (10:00→21:18)
[2022-02-16] MEDS: lamoTRIgine 25 MG TABLET PO SCH ×2 (10:00→21:18)
[2022-02-16] MEDS: ESCITALOPRAM OXALATE 10 MG TABLET PO SCH (10:00)
[2022-02-16] MEDS: HEPARIN NA (PORCINE) 5,000 UNITS/ML 1ML VIAL SQ SCH ×2 (10:15→21:19)
[2022-02-16] MEDS ORDERED: QUEtiapine FUMARATE 25 MG TABLET PO SCH ×2 (14:30→22:00)
[2022-02-16] MEDS: QUEtiapine FUMARATE 25 MG TABLET PO SCH ×2 (15:24→21:18)
[2022-02-16] MEDS: DONEPEZIL HCL 10 MG TABLET (FP) PO SCH (21:18)
[2022-02-17 07:56] LABS: HEMATOCRIT 34.6 % (35.4-49); MCH 33.5 pg (25.7-33.7); MCHC 34.7 g/dl (32.0-35.9); MEAN CELL VOLUME 96.4 fl (80-96); MEAN PLT VOLUME 8.6 fl (7.5-11.1); PLATELET COUNT 233.6 10^3/uL (134-434); RBC 3.59 10^6/uL (4.00-5.60); WHITE BLOOD COUNT 8.7 10^3/uL (4.0-10.8)
[2022-02-17 08:27] LABS: CALCIUM 8.6 mg/dl (8.5-10); MAGNESIUM 1.5 mg/dL (1.8-2.4); PHOSPHOROUS 3.6 mg/dl (2.5-4.9)
[2022-02-17] MEDS: MEMANTINE HCL 10 MG TABLET (FP) PO SCH ×2 (09:23→21:14)
[2022-02-17] MEDS: QUEtiapine FUMARATE 25 MG TABLET PO SCH ×2 (09:23→21:14)
[2022-02-17] MEDS: HEPARIN NA (PORCINE) 5,000 UNITS/ML 1ML VIAL SQ SCH ×2 (09:23→21:14)
[2022-02-17] MEDS: lamoTRIgine 25 MG TABLET PO SCH ×2 (09:23→21:13)
[2022-02-17] MEDS: ESCITALOPRAM OXALATE 10 MG TABLET PO SCH (09:23)
[2022-02-17] MEDS ORDERED: MAGNESIUM SULF 50% (8.12 MEQ/2 ML-1 GM VIAL) IVPB ONE (09:44)
[2022-02-17] MEDS ORDERED: MAGNESIUM SULFATE IN WATER 2 GM/50 ML IVPB IVPB ONE (10:00)
[2022-02-17] MEDS: DONEPEZIL HCL 10 MG TABLET (FP) PO SCH (21:13)
[2022-02-18] MEDS: QUEtiapine FUMARATE 25 MG TABLET PO SCH ×2 (10:28→22:06)
[2022-02-18] MEDS: MEMANTINE HCL 10 MG TABLET (FP) PO SCH ×2 (10:28→22:05)
[2022-02-18] MEDS: HEPARIN NA (PORCINE) 5,000 UNITS/ML 1ML VIAL SQ SCH (10:28)
[2022-02-18] MEDS: ESCITALOPRAM OXALATE 10 MG TABLET PO SCH (10:28)
[2022-02-18] MEDS: lamoTRIgine 25 MG TABLET PO SCH ×2 (10:28→22:05)
[2022-02-18] MEDS: DONEPEZIL HCL 10 MG TABLET (FP) PO SCH (22:06)
[2022-02-19] MEDS: lamoTRIgine 25 MG TABLET PO SCH ×2 (09:14→21:56)
[2022-02-19] MEDS: ENOXAPARIN NA (PORCINE) 40 MG/0.4 ML DISP.SYRIN SQ SCH (09:15)
[2022-02-19] MEDS: MEMANTINE HCL 10 MG TABLET (FP) PO SCH ×2 (09:15→21:56)
[2022-02-19] MEDS: QUEtiapine FUMARATE 25 MG TABLET PO SCH ×2 (09:15→21:56)
[2022-02-19] MEDS: ESCITALOPRAM OXALATE 10 MG TABLET PO SCH (09:15)
[2022-02-19] MEDS: DONEPEZIL HCL 10 MG TABLET (FP) PO SCH (21:56)
[2022-02-20] MEDS: lamoTRIgine 25 MG TABLET PO SCH ×2 (10:26→21:41)
[2022-02-20] MEDS: ENOXAPARIN NA (PORCINE) 40 MG/0.4 ML DISP.SYRIN SQ SCH (10:26)
[2022-02-20] MEDS: MEMANTINE HCL 10 MG TABLET (FP) PO SCH ×2 (10:26→21:42)
[2022-02-20] MEDS: QUEtiapine FUMARATE 25 MG TABLET PO SCH ×2 (10:27→21:42)
[2022-02-20] MEDS: ESCITALOPRAM OXALATE 10 MG TABLET PO SCH (10:27)
[2022-02-20] MEDS: DONEPEZIL HCL 10 MG TABLET (FP) PO SCH (21:42)
[2022-02-21] MEDS: QUEtiapine FUMARATE 25 MG TABLET PO SCH ×2 (10:41→22:31)
[2022-02-21] MEDS: ESCITALOPRAM OXALATE 10 MG TABLET PO SCH (10:41)
[2022-02-21] MEDS: lamoTRIgine 25 MG TABLET PO SCH ×2 (10:42→22:30)
[2022-02-21] MEDS: MEMANTINE HCL 10 MG TABLET (FP) PO SCH ×2 (10:42→22:30)
[2022-02-21] MEDS: ENOXAPARIN NA (PORCINE) 40 MG/0.4 ML DISP.SYRIN SQ SCH (10:42)
[2022-02-21] MEDS: DONEPEZIL HCL 10 MG TABLET (FP) PO SCH (22:30)
[2022-02-22] MEDS: lamoTRIgine 25 MG TABLET PO SCH ×2 (09:48→21:44)
[2022-02-22] MEDS: QUEtiapine FUMARATE 25 MG TABLET PO SCH ×2 (09:48→21:44)
[2022-02-22] MEDS: MEMANTINE HCL 10 MG TABLET (FP) PO SCH ×2 (09:48→21:45)
[2022-02-22] MEDS: ESCITALOPRAM OXALATE 10 MG TABLET PO SCH (09:48)
[2022-02-22] MEDS: ENOXAPARIN NA (PORCINE) 40 MG/0.4 ML DISP.SYRIN SQ SCH (09:49)
[2022-02-22] MEDS: DONEPEZIL HCL 10 MG TABLET (FP) PO SCH (21:44)
[2022-02-23] MEDS: QUEtiapine FUMARATE 25 MG TABLET PO SCH ×2 (09:54→21:43)
[2022-02-23] MEDS: lamoTRIgine 25 MG TABLET PO SCH ×2 (09:54→21:41)
[2022-02-23] MEDS: ENOXAPARIN NA (PORCINE) 40 MG/0.4 ML DISP.SYRIN SQ SCH (09:55)
[2022-02-23] MEDS: ESCITALOPRAM OXALATE 10 MG TABLET PO SCH (09:55)
[2022-02-23] MEDS: MEMANTINE HCL 10 MG TABLET (FP) PO SCH ×2 (13:21→21:43)
[2022-02-23] MEDS: DONEPEZIL HCL 10 MG TABLET (FP) PO SCH (21:41)
[2022-02-24] MEDS: MEMANTINE HCL 10 MG TABLET (FP) PO SCH ×2 (09:34→22:25)
[2022-02-24] MEDS: lamoTRIgine 25 MG TABLET PO SCH ×2 (09:34→22:30)
[2022-02-24] MEDS: ENOXAPARIN NA (PORCINE) 40 MG/0.4 ML DISP.SYRIN SQ SCH (09:34)
[2022-02-24] MEDS: ESCITALOPRAM OXALATE 10 MG TABLET PO SCH (09:34)
[2022-02-24] MEDS: QUEtiapine FUMARATE 25 MG TABLET PO SCH ×2 (09:35→22:30)
[2022-02-25] MEDS: DONEPEZIL HCL 10 MG TABLET (FP) PO SCH (00:32)
[2022-02-25 03:56] VITALS: RESP 18
[2022-02-25 07:06] VITALS: BP 111/61; PULSE 53; TEMP 98.2
[2022-02-25] MEDS: ENOXAPARIN NA (PORCINE) 40 MG/0.4 ML DISP.SYRIN SQ SCH (11:19)
[2022-02-25] MEDS: lamoTRIgine 25 MG TABLET PO SCH (11:20)
[2022-02-25] MEDS: QUEtiapine FUMARATE 25 MG TABLET PO SCH (11:21)
[2022-02-25] MEDS: ESCITALOPRAM OXALATE 10 MG TABLET PO SCH (11:21)
[2022-02-25] MEDS: MEMANTINE HCL 10 MG TABLET (FP) PO SCH (11:21)
== END 2022-02-25 12:43 | disposition home or self-care (01) | DRG 56 ==
LOC: FER 15:31 → FM/S 17:18 → UNDOADMIN 19:33 → FM/S 20:44
PROVIDERS: ADMIT Internal Medicine
DX: G30.9 Alzheimer's disease, unspecified (principal); G93.41 Metabolic encephalopathy; E44.0 Moderate protein-calorie malnutrition; C85.90 Non-Hodgkin lymphoma, unspecified, unspecified site; R64 Cachexia; F02.80 Dementia in other diseases classified elsewhere, unspecified severity, without behavioral disturbance, psychotic disturbance, mood disturbance, and anxiety; R62.7 Adult failure to thrive; Z68.21 Body mass index [BMI] 21.0-21.9, adult; D47.2 Monoclonal gammopathy; R29.6 Repeated falls; R55 Syncope and collapse; R77.8 Other specified abnormalities of plasma proteins; N18.9 Chronic kidney disease, unspecified; D64.9 Anemia, unspecified; F32.A Depression, unspecified
CPT/HCPCS: 0241U-QW; 36415; 70450-TC; 71045-TC-FY; 72125-TC; 72170-TC-FY; 73030-TC-RT-FY; 80048; 80053; 81003; 82607; 83735; 84100; 84484; 85025; 85027; 85610; 85730; 87086; 93005; 97116-GP; 99285-25; J1644